=== PATIENT | female | born 1955 | race Caucasian/White ===

== ENCOUNTER 2022-09-09 09:22 | Emergency (ER) | payer MEDICARE ==
[2022-09-09] MEDS ORDERED: Sodium Chloride 0.9% 10 ML Syringe FLUSH PRN (09:51)
[2022-09-09] MEDS ORDERED: Ondansetron 4 MG/2 ML SDV IVPUSH ONE (09:51)
[2022-09-09] MEDS ORDERED: Sodium Chloride 0.9% 1,000 ML IV SCH (10:00)
[2022-09-09] MEDS ORDERED: HYDROmorphone 0.5 MG/0.5 ML Syringe IVPUSH ONE (10:30)
[2022-09-09] MEDS ORDERED: Sodium Bicarbonate 8.4% 50 MEQ/50 ML Syringe IVPUSH ONE ×2 (10:46→12:34)
[2022-09-09] MEDS ORDERED: Albuterol 0.083% 2.5 MG/3 ML Neb Soln NEB ONE (10:47)
[2022-09-09] MEDS ORDERED: Calcium Gluconate 10% 1 GM/10 ML SDV IVPUSH ONE (10:47)
[2022-09-09] MEDS ORDERED: 50% Dextrose in Water 50 ML Syringe IVPUSH ONE (10:48)
[2022-09-09] MEDS ORDERED: Insulin Regular, Human 100 Units/ML 3 ML Vial SUBCUT ONE (10:48)
[2022-09-09] MEDS ORDERED: Sodium Chloride 0.9% 1,000 ML IV ONE (10:53)
[2022-09-09 11:21] LABS: CORONAVIRUS COVID-19 NAA NEGATIVE (NEGATIVE)
[2022-09-09] MEDS ORDERED: HYDROmorphone 1 MG/ML Syringe IVPUSH ONE ×2 (12:08→14:11)
[2022-09-09] MEDS ORDERED: Sodium Bicarbonate 150 MEQ in Dextrose 5% in Water 1,000 ML IV ONE ×2 (12:45)
[2022-09-09] MEDS ORDERED: Dextrose 5% in Water 1,000 ML ONE (13:36)
== END 2022-09-09 14:23 ==
LOC: JD.ED 09:22
DX: E86.0 Dehydration (principal); E87.5 Hyperkalemia; N17.9 Acute kidney failure, unspecified; I10 Essential (primary) hypertension; Z79.899 Other long term (current) drug therapy; Z20.822 Contact with and (suspected) exposure to COVID-19
CPT/HCPCS: 0241U; 36415; 74176; 80053; 83690; 83735; 84484; 85025; 86140; 93005; 94640; 96361; 96365; 96375; 96376; 99285; J0610; J1170; J1815; J2405; J3490; J7030; J7060

== ENCOUNTER 2022-09-26 09:44 | Day surgery (SDC) | payer MEDICARE ==
[~2022-09-26 09:44] MED LIST: Lactated Ringers 1,000 ML IV SCH; Lidocaine 1% 5 ML VIAL ONE; Lidocaine 1%/Sod Bicarbonate in NS 8.4% 1 ML Syringe IDERM PRN; Midazolam 1 MG/ML 2 ML SDV ONE; Propofol 200 MG/20 ML SDV ONE; Sodium Chloride 0.9% 10 ML Syringe FLUSH PRN; Sodium Chloride 0.9% 10 ML Syringe FLUSH SCH; fentaNYL 100 MCG/2 ML SDV ONE
[2022-09-26] MEDS ORDERED: Sodium Chloride 0.9% 50 ML SDV ONE (09:55)
[2022-09-26] MEDS ORDERED: Lidocaine 1% with EPINEPHrine 1:100,000 10 ML MDV ONE (09:55)
[2022-09-26] MEDS ORDERED: fentaNYL 100 MCG/2 ML SDV IVPUSH PRN (10:48)
[2022-09-26] MEDS ORDERED: Ondansetron 4 MG/2 ML SDV IVPUSH PRN (10:48)
[2022-09-26] MEDS ORDERED: HYDROmorphone 0.5 MG/0.5 ML Syringe IVPUSH PRN (10:48)
[2022-09-26] MEDS ORDERED: Ondansetron 4 MG/2 ML SDV ONE (11:58)
[2022-09-26] MEDS ORDERED: ceFAZolin 2 GM Vial ONE (11:58)
[2022-09-26] MEDS ORDERED: Phenylephrine HCl In 0.9% NaCl 1 MG/10 ML Vial ONE (12:04)
== END 2022-09-26 13:50 | disposition home or self-care (01) ==
LOC: JD.SDS 09:44
PROVIDERS: ATTEND Surgery
DX: Z45.2 Encounter for adjustment and management of vascular access device (principal); C20 Malignant neoplasm of rectum; I10 Essential (primary) hypertension; K21.9 Gastro-esophageal reflux disease without esophagitis; E87.5 Hyperkalemia; N17.9 Acute kidney failure, unspecified; D64.9 Anemia, unspecified; Z98.890 Other specified postprocedural states; Z79.899 Other long term (current) drug therapy
CPT/HCPCS: 36415; 36561; 71045; 76000; 80048; C1788; J0690; J1642; J2250; J2405; J2704; J3010; J7120

== ENCOUNTER 2023-04-02 13:16 | Inpatient (IN) | payer MEDICARE ==
[2023-04-02] MEDS ORDERED: Sodium Chloride 0.9% 10 ML Syringe FLUSH PRN (13:36)
[2023-04-02] MEDS ORDERED: Sodium Chloride 0.9% 1,000 ML IV STA (14:00)
[2023-04-02] MEDS ORDERED: Acetaminophen 325 MG Tab PO ONE (14:00)
[2023-04-02 14:20] LABS: HEMATOCRIT 28.3 % (34.1-44.9); MEAN CORPUSCULAR HEMOGLOBIN 28.3 pg (25.6-32.2); MEAN CORPUSCULAR HGB CONC 31.8 g/dl (32.2-35.5); MEAN PLATELET VOLUME 9.9 fl (9.4-12.3); PLATELET COUNT,PLT 79 K/mm3 (182-369); RED BLOOD CELL COUNT 3.18 M/mm3 (3.98-5.22)
[2023-04-02 14:31] LABS: APPEARANCE,URINE CLEAR (Clear); BILIRUBIN,URINE NEGATIVE (Negative); COLOR,URINE YELLOW (Yellow); GLUCOSE,URINE NEGATIVE (Negative); KETONES,URINE NEGATIVE (Negative); LEUKOCYTE ESTERASE,URINE 1+ (Negative); NITRITE,URINE POSITIVE (Negative); OCCULT BLOOD,URINE NEGATIVE (Negative); PH,URINE 6.5 (5.0-8.0); PROTEIN,URINE 1+ (Negative); UROBILINOGEN,URINE 0.2 (0.2-1.0)
[2023-04-02 14:36] LABS: WHITE BLOOD CELL COUNT,WBC 1.59 K/mm3 (3.98-10.04)
[2023-04-02] MEDS ORDERED: cefTRIAXone 1 GM in Sodium Chloride 0.9% 100 ML IV ONE (14:43)
[2023-04-02 14:47] LABS: A/G RATIO 0.7 (1-2); ALBUMIN 3.1 g/dl (3.4-5.0); ANION GAP 13.9 (5-15); BILIRUBIN TOTAL 0.3 mg/dL (0.2-1.0); BUN/CREATININE RATIO 13.3 (14-18); C-REACTIVE PROTEIN 5.8 mg/dL (<1.0); CALCIUM 8.2 mg/dL (8.5-10.1); CREATININE 0.9 mg/dL (0.55-1.02); EST CRCL DRUG DOSING (CG) 48.11 mL/min; PROTEIN TOTAL,TP 7.4 g/dl (6.4-8.2)
[2023-04-02 14:51] LABS: POTASSIUM,K 3.9 mEq/L (3.5-5.1)
[2023-04-02 14:56] LABS: INR 1.02; PROTHROMBIN TIME 10.9 SECONDS (9.7-12.0)
[2023-04-02 15:00] LABS: BAND PERCENT MAN 0 % (0-10); BASOPHILS PERCENT MAN 1 (0.1-1.2); EOSINOPHILS PERCENT MAN 0 % (0.7-5.8); LYMPHOCYTES % ATYPICAL MANUAL 0 %; LYMPHOCYTES PERCENT MAN 26 % (20-40); METAMYELOCYTE PERCENT MAN 3; MONOCYTES PERCENT MAN 4 % (2-10)
[2023-04-02 15:04] LABS: ANISOCYTOSIS 1+ SLIGHT; HYPOCHROMASIA 1+ SLIGHT; MICROCYTOSIS 1+ SLIGHT; PLATELET COUNT ESTIMATE DECREASED; POIKILOCYTOSIS 2+ MODERATE
[2023-04-02 15:14] LABS: BACTERIA,URINE MANY /hpf (FEW); MUCUS,URINE FEW /hpf (FEW); RBC,URINE 0-5 /hpf (0-5); SQUAMOUS EPITHELIAL CELLS,UR 0-5 /hpf (0-5); WBC CLUMPS,URINE MODERATE /hpf (NOT SEEN); WBC,URINE >100 /hpf (0-5)
[2023-04-02] MEDS ORDERED: Meropenem 1 GM in Sodium Chloride 0.9% 100 ML IV SCH (16:00)
[2023-04-02] MEDS ORDERED: Morphine 2 MG/ML SYRINGE IVPUSH PRN (16:18)
[2023-04-02] MEDS ORDERED: Ondansetron 4 MG Tab.DIS PO PRN (16:18)
[2023-04-02] MEDS ORDERED: Cyclobenzaprine 10 MG Tab PO PRN (16:28)
[2023-04-02] MEDS ORDERED: traZODone 50 MG Tab PO PRN (16:28)
[2023-04-02] MEDS ORDERED: LORazepam 1 MG Tab PO PRN (16:28)
[2023-04-02] MEDS ORDERED: Dexamethasone 4 MG Tab PO SCH (16:30)
[2023-04-02 16:53] LABS: CORONAVIRUS COVID-19 NAA NEGATIVE (NEGATIVE); INFLUENZA A NAA NEGATIVE (NEGATIVE); RESPIRATORY SYNCYTIAL VIR NAA NEGATIVE (NEGATIVE)
[2023-04-02] MEDS: oxyCODONE 5 MG Tab PO PRN ×2 (17:54→21:59)
[2023-04-02] MEDS: Meropenem 500 MG in Sodium Chloride 0.9% 100 ML IV SCH (17:55)
[2023-04-02] MEDS ORDERED: Lidocaine 2% Viscous Solution 15 ML UD PO PRN (17:58)
[2023-04-02] MEDS: Famotidine 10 MG Tab PO SCH (20:59)
[2023-04-02] MEDS: Metoprolol Tartrate 100 MG Tab PO SCH (21:00)
[2023-04-02] MEDS: Sodium Bicarbonate 650 MG Tab PO SCH (21:00)
[2023-04-02] MEDS: Gabapentin 300 MG Cap PO SCH (21:00)
[2023-04-02] MEDS: Sodium Chloride 0.9% 1,000 ML IV SCH (21:36)
[2023-04-03] MEDS: Meropenem 500 MG in Sodium Chloride 0.9% 100 ML IV SCH ×3 (00:55→16:37)
[2023-04-03] MEDS: oxyCODONE 5 MG Tab PO PRN ×3 (02:21→16:49)
[2023-04-03 06:32] LABS: BASOPHILS ABSOLUTE AUTO 0.01 K/mm3 (0.01-0.08); BASOPHILS PERCENT AUTO 0.5 % (0.1-1.2); EOSINOPHILS ABSOLUTE AUTO 0.03 K/mm3 (0.04-0.36); EOSINOPHILS PERCENT AUTO 1.5 (0.7-5.8); HEMATOCRIT 24.8 % (34.1-44.9); HEMOGLOBIN 7.7 gm/dl (11.2-15.7); IMMATURE GRAN ABSOLUTE AUTO 0.01 K/mm3 (0.00-0.10); IMMATURE GRAN PERCENT AUTO 0.5 % (<=1.0); LYMPHOCYTES PERCENT AUTO 49.5 % (19.3-51.7); MEAN CORPUSCULAR VOLUME 90.2 fl (79.4-94.8); MEAN PLATELET VOLUME 8.5 fl (9.4-12.3); MONOCYTES ABSOLUTE AUTO 0.16 K/mm3 (0.24-0.36); MONOCYTES PERCENT AUTO 7.9 % (4.7-12.5); NEUTROPHILS ABSOLUTE AUTO 0.81 K/mm3 (1.56-6.13); NEUTROPHILS PERCENT AUTO 40.1 % (34.0-71.1); PLATELET COUNT,PLT 62 K/mm3 (182-369); RED BLOOD CELL COUNT 2.75 M/mm3 (3.98-5.22)
[2023-04-03 07:17] LABS: A/G RATIO 0.7 (1-2); ALBUMIN 2.4 g/dl (3.4-5.0); ANION GAP 10.5 (5-15); BILIRUBIN TOTAL 0.2 mg/dL (0.2-1.0); BUN/CREATININE RATIO 13.8 (14-18); CALCIUM 7.7 mg/dL (8.5-10.1); CREATININE 0.8 mg/dL (0.55-1.02); EST CRCL DRUG DOSING (CG) 54.13 mL/min; POTASSIUM,K 3.5 mEq/L (3.5-5.1); PROTEIN TOTAL,TP 5.8 g/dl (6.4-8.2)
[2023-04-03 07:50] LABS: WHITE BLOOD CELL COUNT,WBC 2.02 K/mm3 (3.98-10.04)
[2023-04-03 08:16] LABS: SLIDE REVIEW ABNORMAL SMEAR
[2023-04-03] MEDS: Famotidine 10 MG Tab PO SCH ×2 (08:58→21:32)
[2023-04-03] MEDS: Metoprolol Tartrate 100 MG Tab PO SCH ×2 (08:58→21:32)
[2023-04-03] MEDS: Gabapentin 300 MG Cap PO SCH ×3 (09:00→21:32)
[2023-04-03] MEDS: Sodium Bicarbonate 650 MG Tab PO SCH ×2 (09:00→21:32)
[2023-04-03] MEDS: Sodium Chloride 0.9% 1,000 ML IV SCH (11:36)
[2023-04-03] MEDS ORDERED: Codeine/Promethazine 10-6.25 MG/5 ML Syrup 5 ML UD Cup PO PRN (15:43)
[2023-04-04] MEDS: Sodium Chloride 0.9% 1,000 ML IV SCH (01:15)
[2023-04-04] MEDS: Meropenem 500 MG in Sodium Chloride 0.9% 100 ML IV SCH ×2 (01:17→09:55)
[2023-04-04 06:33] LABS: BASOPHILS ABSOLUTE AUTO 0.02 K/mm3 (0.01-0.08); BASOPHILS PERCENT AUTO 0.7 % (0.1-1.2); EOSINOPHILS ABSOLUTE AUTO 0.13 K/mm3 (0.04-0.36); EOSINOPHILS PERCENT AUTO 4.6 (0.7-5.8); HEMATOCRIT 25.6 % (34.1-44.9); HEMOGLOBIN 8.2 gm/dl (11.2-15.7); LYMPHOCYTES ABSOLUTE AUTO 1.56 K/mm3 (1.18-3.74); LYMPHOCYTES PERCENT AUTO 55.5 % (19.3-51.7); MEAN CORPUSCULAR HEMOGLOBIN 28.8 pg (25.6-32.2); MEAN CORPUSCULAR VOLUME 89.8 fl (79.4-94.8); MEAN PLATELET VOLUME 9.1 fl (9.4-12.3); MONOCYTES ABSOLUTE AUTO 0.27 K/mm3 (0.24-0.36); MONOCYTES PERCENT AUTO 9.6 % (4.7-12.5); NEUTROPHILS ABSOLUTE AUTO 0.83 K/mm3 (1.56-6.13); NEUTROPHILS PERCENT AUTO 29.6 % (34.0-71.1); PLATELET COUNT,PLT 57 K/mm3 (182-369); RED BLOOD CELL COUNT 2.85 M/mm3 (3.98-5.22); WHITE BLOOD CELL COUNT,WBC 2.81 K/mm3 (3.98-10.04)
[2023-04-04 06:52] LABS: A/G RATIO 0.7 (1-2); ALBUMIN 2.4 g/dl (3.4-5.0); ANION GAP 12.6 (5-15); BILIRUBIN TOTAL 0.2 mg/dL (0.2-1.0); BUN/CREATININE RATIO 12.9 (14-18); CALCIUM 7.9 mg/dL (8.5-10.1); CREATININE 0.7 mg/dL (0.55-1.02); EST CRCL DRUG DOSING (CG) 61.86 mL/min; POTASSIUM,K 3.6 mEq/L (3.5-5.1)
[2023-04-04 09:14] LABS: SLIDE REVIEW ABNORMAL SMEAR
[2023-04-04] MEDS: Famotidine 10 MG Tab PO SCH (09:54)
[2023-04-04] MEDS: Sodium Bicarbonate 650 MG Tab PO SCH (09:54)
[2023-04-04] MEDS: Metoprolol Tartrate 100 MG Tab PO SCH (09:54)
[2023-04-04] MEDS: oxyCODONE 5 MG Tab PO PRN (09:55)
[2023-04-04] MEDS: Gabapentin 300 MG Cap PO SCH (09:55)
== END 2023-04-04 12:45 | disposition home or self-care (01) | DRG 689 ==
LOC: JD.ED 13:16 → JD.MS 16:18
PROVIDERS: ADMIT Internal Medicine; ATTEND Internal Medicine
DX: N39.0 Urinary tract infection, site not specified (principal); D61.810 Antineoplastic chemotherapy induced pancytopenia; Z20.822 Contact with and (suspected) exposure to COVID-19; C18.6 Malignant neoplasm of descending colon; D84.9 Immunodeficiency, unspecified; T45.515A Adverse effect of anticoagulants, initial encounter; B96.20 Unspecified Escherichia coli [E. coli] as the cause of diseases classified elsewhere; I10 Essential (primary) hypertension; Z79.899 Other long term (current) drug therapy; Z93.3 Colostomy status; Z98.890 Other specified postprocedural states; Z98.51 Tubal ligation status
CPT/HCPCS: 0241U; 36415; 71046; 80053; 81001; 83605; 85007; 85025; 85027; 85610; 86140; 87040; 87077; 87086; 87088; 87154; 87186; 96523; 97112; 97161; 96361; 96365; 99223; 99232; 99239; 99285; 99285-25; A9270-GY; J0696; J1642; J2185; J3490; J7030

== ENCOUNTER 2023-12-15 19:46 | Emergency (ER) | payer MEDICARE, OTHER ==
[2023-12-15 20:28] LABS: BASOPHILS PERCENT AUTO 0.4 % (0.0-1.0); EOSINOPHILS ABSOLUTE AUTO 0.2 K/mm3 (0.0-0.4); EOSINOPHILS PERCENT AUTO 2.6 % (0.0-6.0); IMMATURE GRAN ABSOLUTE AUTO 0.03 K/mm3 (0.00-0.05); IMMATURE GRAN PERCENT AUTO 0.3 % (0.0-0.4); LYMPHOCYTES ABSOLUTE AUTO 2.5 K/mm3 (1.0-4.8); MEAN CORPUSCULAR HEMOGLOBIN 26.3 pg (28.0-32.0); MEAN CORPUSCULAR HGB CONC 32.4 g/dl (32.0-36.0); MONOCYTES ABSOLUTE AUTO 0.7 K/mm3 (0.0-0.8); MONOCYTES PERCENT AUTO 7.3 % (0.0-8.0); NEUTROPHILS ABSOLUTE AUTO 5.5 K/mm3 (1.8-7.7); NEUTROPHILS PERCENT AUTO 61.4 % (41.0-71.0); PLATELET COUNT,PLT 206 K/mm3 (150-400); RED BLOOD CELL COUNT 4.57 M/mm3 (4.10-5.30); WHITE BLOOD CELL COUNT,WBC 8.95 K/mm3 (3.9-11.3)
[2023-12-15 20:33] LABS: APPEARANCE,URINE CLEAR (Clear); BILIRUBIN,URINE NEGATIVE (Negative); COLOR,URINE LIGHT YELLOW (Yellow); GLUCOSE,URINE NEGATIVE (Negative); KETONES,URINE NEGATIVE (Negative); LEUKOCYTE ESTERASE,URINE 1+ (Negative); NITRITE,URINE NEGATIVE (Negative); OCCULT BLOOD,URINE NEGATIVE (Negative); PH,URINE 7.5 (5.0-8.0); PROTEIN,URINE NEGATIVE (Negative); UROBILINOGEN,URINE 0.2 (0.2-1.0)
[2023-12-15] MEDS: Sodium Chloride 0.9% 10 ML Syringe FLUSH PRN (20:35)
[2023-12-15] MEDS: Ondansetron 4 MG/2 ML SDV IVPUSH ONE (20:40)
[2023-12-15] MEDS: Sodium Chloride 0.9% 1,000 ML IV SCH (20:41)
[2023-12-15 20:53] LABS: RBC,URINE 0-5 /hpf (0-5); SQUAMOUS EPITHELIAL CELLS,UR 0-5 /hpf (0-5)
[2023-12-15 20:54] LABS: BACTERIA,URINE FEW /hpf (FEW); MUCUS,URINE NOT SEEN /hpf (FEW); RENAL EPITHELIAL CELLS,URINE 0-5 /hpf (0-5)
[2023-12-15 20:56] LABS: ALANINE AMINOTRANSFERASE,ALT 14 U/L (14-59); ALBUMIN 3.8 g/dl (3.4-5.0); ALKALINE PHOSPHATASE 102 U/L (46-116); ANION GAP 17.7 (5-15); ASPARTATE AMNIOTRANSFERASE,AST 17 U/L (15-37); BILIRUBIN TOTAL 0.5 mg/dL (0.2-1.0); BLOOD UREA NITROGEN,BUN 9 mg/dL (7-18); C-REACTIVE PROTEIN < 0.2 mg/dL (<1.0); CALCIUM 8.9 mg/dL (8.5-10.1); CARBON DIOXIDE,CO2 25 mEq/L (21-32); CHLORIDE,CL 102 mEq/L (98-107); ESTIMATED GFR 61 mL/min (>60); GLUCOSE RANDOM 140 mg/dL (70-99); LIPASE 23 U/L (16-77); MAGNESIUM 1.9 mg/dL (1.8-2.4); POTASSIUM,K 3.7 mEq/L (3.5-5.1); PROTEIN TOTAL,TP 7.6 g/dl (6.4-8.2); SODIUM,NA 141 mEq/L (136-145)
[2023-12-15] MEDS: Alum Hydrox/Mag Hydrox/Simeth 30 ML, Lidocaine 2% 15 ML PO ONE (21:09)
[2023-12-15 21:24] LABS: CORONAVIRUS COVID-19 NAA NEGATIVE (NEGATIVE); INFLUENZA A NAA NEGATIVE (NEGATIVE); RESPIRATORY SYNCYTIAL VIR NAA NEGATIVE (NEGATIVE)
== END 2023-12-15 21:52 | disposition home or self-care (01) ==
LOC: JD.ED 19:46
DX: R10.13 Epigastric pain (principal); R11.0 Nausea; I10 Essential (primary) hypertension; Z79.899 Other long term (current) drug therapy
CPT/HCPCS: 0241U; 36415; 80053; 81001; 83690; 83735; 84484; 85025; 86140; 93005; 96361; 96374; 99284-25; A9270-GY; J2405; J3490; J7030

== ENCOUNTER 2024-02-17 13:41 | Emergency (ER) | payer MEDICARE ==
[2024-02-17] MEDS: Sodium Chloride 0.9% 1,000 ML IV ONE (15:04)
[2024-02-17 15:10] LABS: BASOPHILS ABSOLUTE AUTO 0.1 K/mm3 (0.0-0.2); BASOPHILS PERCENT AUTO 0.6 % (0.0-1.0); EOSINOPHILS ABSOLUTE AUTO 0.2 K/mm3 (0.0-0.4); HEMATOCRIT 30.4 % (37.0-47.0); IMMATURE GRAN ABSOLUTE AUTO 0.03 K/mm3 (0.00-0.05); IMMATURE GRAN PERCENT AUTO 0.3 % (0.0-0.4); MEAN CORPUSCULAR HGB CONC 32.2 g/dl (32.0-36.0); MEAN CORPUSCULAR VOLUME 80.6 fl (83.0-99.0); MEAN PLATELET VOLUME 8.6 fl (9.4-12.3); MONOCYTES ABSOLUTE AUTO 0.7 K/mm3 (0.0-0.8); MONOCYTES PERCENT AUTO 8.1 % (0.0-8.0); NEUTROPHILS ABSOLUTE AUTO 4.8 K/mm3 (1.8-7.7); PLATELET COUNT,PLT 176 K/mm3 (150-400); RED BLOOD CELL COUNT 3.77 M/mm3 (4.10-5.30); WHITE BLOOD CELL COUNT,WBC 8.67 K/mm3 (3.9-11.3)
[2024-02-17 15:18] LABS: HEMOGLOBIN 9.8 gm/dl (12.0-16.0)
[2024-02-17 15:42] LABS: LACTIC ACID 0.7 mmol/L (0.4-2.0)
[2024-02-17] MEDS: Sodium Chloride 0.9% 10 ML Syringe FLUSH PRN (15:44)
[2024-02-17 15:49] LABS: ALANINE AMINOTRANSFERASE,ALT 13 U/L (14-59); ALBUMIN 3.2 g/dl (3.4-5.0); ALKALINE PHOSPHATASE 88 U/L (46-116); ANION GAP 12.5 (5-15); ASPARTATE AMNIOTRANSFERASE,AST 11 U/L (15-37); BILIRUBIN TOTAL 0.2 mg/dL (0.2-1.0); BLOOD UREA NITROGEN,BUN 15 mg/dL (7-18); BUN/CREATININE RATIO 16.7 (14-18); CALCIUM 8.1 mg/dL (8.5-10.1); CARBON DIOXIDE,CO2 28 mEq/L (21-32); CHLORIDE,CL 103 mEq/L (98-107); CREATININE 0.9 mg/dL (0.55-1.02); ESTIMATED GFR 68 mL/min (>60); GLUCOSE RANDOM 93 mg/dL (70-99); MAGNESIUM 1.9 mg/dL (1.8-2.4); POTASSIUM,K 3.5 mEq/L (3.5-5.1); PROTEIN TOTAL,TP 6.5 g/dl (6.4-8.2); SODIUM,NA 140 mEq/L (136-145)
[2024-02-17] MEDS ORDERED: Sodium Chloride 0.9% 10 ML Syringe FLUSH PRN (15:57)
[2024-02-17 15:59] LABS: APPEARANCE,URINE CLEAR (Clear); BILIRUBIN,URINE NEGATIVE (Negative); COLOR,URINE LIGHT YELLOW (Yellow); GLUCOSE,URINE NEGATIVE (Negative); KETONES,URINE NEGATIVE (Negative); LEUKOCYTE ESTERASE,URINE 1+ (Negative); NITRITE,URINE NEGATIVE (Negative); OCCULT BLOOD,URINE NEGATIVE (Negative); PROTEIN,URINE NEGATIVE (Negative); UROBILINOGEN,URINE 0.2 (0.2-1.0)
[2024-02-17] MEDS ORDERED: Sodium Chloride 0.9% 100 ML IV SCH (16:00)
[2024-02-17 16:06] LABS: BACTERIA,URINE FEW /hpf (FEW); EPITHELIAL CELLS,URINE 0-5 /hpf (0-5); MUCUS,URINE FEW /hpf (FEW); RBC,URINE 0-5 /hpf (0-5)
[2024-02-17] MEDS: Iopamidol 755 Mg/ML 100 ML Bottle IVPUSH ONE (17:41)
[2024-02-17] MEDS: cefTRIAXone 1 GM in Sodium Chloride 0.9% 100 ML IV ONE (18:44)
== END 2024-02-17 19:25 | disposition home or self-care (01) ==
LOC: EDUNIT# → EDBD → JD.ED 13:41
DX: N39.0 Urinary tract infection, site not specified (principal); Z79.899 Other long term (current) drug therapy
CPT/HCPCS: 36415; 70450; 70496; 70498; 80053; 81001; 81003; 83605; 83735; 85025; 87086; 96361; 96365; 99285; J0696; J1642; J3490; J7030; Q9967

== ENCOUNTER 2024-08-22 20:36 | Inpatient (IN) | payer MEDICAID, MEDICARE, OTHER ==
[2024-08-22 21:02] LABS: BASOPHILS PERCENT AUTO 0.7 % (0.0-1.0); EOSINOPHILS ABSOLUTE AUTO 0.4 K/mm3 (0.0-0.4); HEMATOCRIT 33.4 % (37.0-47.0); HEMOGLOBIN 10.8 gm/dl (12.0-16.0); IMMATURE GRAN ABSOLUTE AUTO 0.01 K/mm3 (0.00-0.05); IMMATURE GRAN PERCENT AUTO 0.2 % (0.0-0.4); LYMPHOCYTES ABSOLUTE AUTO 1.8 K/mm3 (1.0-4.8); LYMPHOCYTES PERCENT AUTO 30.8 % (24.0-44.0); MEAN CORPUSCULAR HGB CONC 32.3 g/dl (32.0-36.0); MEAN CORPUSCULAR VOLUME 80.3 fl (83.0-99.0); MONOCYTES ABSOLUTE AUTO 0.6 K/mm3 (0.0-0.8); MONOCYTES PERCENT AUTO 9.7 % (0.0-8.0); NEUTROPHILS ABSOLUTE AUTO 3.2 K/mm3 (1.8-7.7); NEUTROPHILS PERCENT AUTO 52.6 % (41.0-71.0); PLATELET COUNT,PLT 179 K/mm3 (150-400); RED BLOOD CELL COUNT 4.16 M/mm3 (4.10-5.30); WHITE BLOOD CELL COUNT,WBC 5.98 K/mm3 (3.9-11.3)
[2024-08-22 21:06] LABS: APPEARANCE,URINE CLEAR (Clear); BILIRUBIN,URINE NEGATIVE (Negative); COLOR,URINE YELLOW (Yellow); GLUCOSE,URINE NEGATIVE (Negative); KETONES,URINE NEGATIVE (Negative); LEUKOCYTE ESTERASE,URINE NEGATIVE (Negative); NITRITE,URINE NEGATIVE (Negative); OCCULT BLOOD,URINE NEGATIVE (Negative); PROTEIN,URINE NEGATIVE (Negative)
[2024-08-22 21:15] LABS: BARBITURATE SCREEN,URINE NEGATIVE (CUTOFF=200); BENZODIAZEPINES SCREEN,URINE PRESUMPTIVE POSITIVE (CUTOFF=150); BUPRENORPHINE SCREEN,URINE NEGATIVE (CUTOFF=10); METHADONE SCREEN, URINE NEGATIVE (CUTOFF=200); METHAMPHETAMINES SCREEN, URINE NEGATIVE (CUTOFF=500); OXYCODONE SCREEN,URINE PRESUMPTIVE POSITIVE (CUT0FF=100); THC SCREEN,URINE 20 NG/ML NEGATIVE (CUTOFF=50)
[2024-08-22 21:20] LABS: BACTERIA,URINE RARE /hpf (FEW); HYALINE CASTS,URINE 0-5 /lpf (0-5); MUCUS,URINE FEW /hpf (FEW); RBC,URINE 0-5 /hpf (0-5); SQUAMOUS EPITHELIAL CELLS,UR NOT SEEN /hpf (0-5); WBC,URINE 0-5 /hpf (0-5)
[2024-08-22] MEDS: Naloxone 0.4 MG/ML SDV IVPUSH ONE (21:26)
[2024-08-22 21:27] LABS: AMPHETAMINES SCREEN, URINE NEGATIVE (CUTOFF=500)
[2024-08-22 21:33] LABS: A/G RATIO 0.9 (1-2); ALBUMIN 3.1 g/dl (3.4-5.0); ANION GAP 10.7 (5-15); BILIRUBIN TOTAL 0.4 mg/dL (0.2-1.0); CALCIUM 8.4 mg/dL (8.5-10.1); CREATININE 1.1 mg/dL (0.55-1.02); EST CRCL DRUG DOSING (CG) 40.51 mL/min; POTASSIUM,K 3.7 mEq/L (3.5-5.1); PROTEIN TOTAL,TP 6.7 g/dl (6.4-8.2); TSH 3.88 uIU/mL (0.358-3.74)
[2024-08-23] MEDS: Naloxone 0.4 MG/ML SDV IVPUSH ONE ×2 (00:22→04:44)
[2024-08-23] MEDS: Albuterol/Ipratropium 3.0-0.5 MG/3 ML Neb Soln NEB ONE (04:35)
[2024-08-23 05:44] LABS: CREATINE KINASE,CK 99 U/L (26-192)
[2024-08-23] MEDS: cefTRIAXone 1 GM in Sodium Chloride 0.9% 100 ML IV ONE (05:54)
[2024-08-23 05:59] LABS: ACETAMINOPHEN 0 ug/mL (10-30)
[2024-08-23] MEDS ORDERED: Ondansetron 4 MG/2 ML SDV IV PRN (09:04)
[2024-08-23] MEDS ORDERED: Polyethylene Glycol 3350 Powder 17 GM Packet PO PRN (09:04)
[2024-08-23] MEDS: Dextrose 5%-0.45% NaCl 1,000 ML IV SCH (17:57)
[2024-08-23] MEDS: Cefepime 2 GM in Sodium Chloride 0.9% 50 ML IV SCH (21:07)
[2024-08-23] MEDS: Doxycycline 100 MG in Sodium Chloride 0.9% 100 ML IV SCH (21:38)
[2024-08-24 05:25] LABS: BASOPHILS PERCENT AUTO 0.3 % (0.0-1.0); EOSINOPHILS ABSOLUTE AUTO 0.3 K/mm3 (0.0-0.4); EOSINOPHILS PERCENT AUTO 2.7 % (0.0-6.0); HEMATOCRIT 35.2 % (37.0-47.0); HEMOGLOBIN 11.5 gm/dl (12.0-16.0); IMMATURE GRAN ABSOLUTE AUTO 0.04 K/mm3 (0.00-0.05); IMMATURE GRAN PERCENT AUTO 0.3 % (0.0-0.4); LYMPHOCYTES ABSOLUTE AUTO 1.9 K/mm3 (1.0-4.8); MEAN CORPUSCULAR HGB CONC 32.7 g/dl (32.0-36.0); MEAN CORPUSCULAR VOLUME 79.6 fl (83.0-99.0); MEAN PLATELET VOLUME 10.4 fl (9.4-12.3); MONOCYTES ABSOLUTE AUTO 0.8 K/mm3 (0.0-0.8); MONOCYTES PERCENT AUTO 6.7 % (0.0-8.0); NEUTROPHILS ABSOLUTE AUTO 8.9 K/mm3 (1.8-7.7); PLATELET COUNT,PLT 145 K/mm3 (150-400); RED BLOOD CELL COUNT 4.42 M/mm3 (4.10-5.30); WHITE BLOOD CELL COUNT,WBC 12.01 K/mm3 (3.9-11.3)
[2024-08-24 05:45] LABS: A/G RATIO 0.8 (1-2); ANION GAP 11.5 (5-15); BILIRUBIN TOTAL 0.9 mg/dL (0.2-1.0); EST CRCL DRUG DOSING (CG) 42.68 mL/min; POTASSIUM,K 3.5 mEq/L (3.5-5.1); PROTEIN TOTAL,TP 6.9 g/dl (6.4-8.2)
[2024-08-24] MEDS: Enoxaparin 40 MG/0.4 ML Syringe SUBCUT SCH (09:00)
[2024-08-24 09:59] LABS: MAGNESIUM 1.9 mg/dL (1.8-2.4); PHOSPHORUS 3.2 mg/dL (2.6-4.7)
[2024-08-24] MEDS: Potassium Chloride 20 MEQ Tab.ER PO ONE (10:30)
[2024-08-24] MEDS: Cefepime 2 GM in Sodium Chloride 0.9% 50 ML IV SCH (10:30)
[2024-08-24] MEDS: Diclofenac Sodium 1% Gel 100 GM Tube TOP SCH (10:30)
[2024-08-24] MEDS: Gabapentin 300 MG Cap PO SCH (10:45)
[2024-08-24] MEDS ORDERED: Gabapentin 300 MG Cap PO SCH (15:00)
[2024-08-24] MEDS ORDERED: Ampicillin/Sulbactam Na 1.5 GM in Sodium Chloride 0.9% 100 ML IV SCH (16:00)
[2024-08-24] MEDS: Metoprolol Succinate 50 MG Tab.ER PO SCH (18:18)
[2024-08-24] MEDS: Ampicillin/Sulbactam Na 1.5 GM in Sodium Chloride 0.9% 100 ML IV SCH (18:20)
[2024-08-24] MEDS: Melatonin 3 MG Tab PO PRN (20:39)
[2024-08-24] MEDS: Acetaminophen 325 MG Tab PO PRN (22:05)
[2024-08-24 23:05] LABS: IRON,FE 16 ug/dL (50-170); PERCENT FE SATURATION 9 % (20-55); TOTAL IRON BINDING CAPACITY 179 ug/dL (100-400); TRANSFERRIN 143 mg/dL (202-364)
[2024-08-25 04:47] LABS: BASOPHILS PERCENT AUTO 0.4 % (0.0-1.0); EOSINOPHILS ABSOLUTE AUTO 0.6 K/mm3 (0.0-0.4); EOSINOPHILS PERCENT AUTO 6.1 % (0.0-6.0); HEMATOCRIT 33.7 % (37.0-47.0); HEMOGLOBIN 11.2 gm/dl (12.0-16.0); IMMATURE GRAN ABSOLUTE AUTO 0.04 K/mm3 (0.00-0.05); IMMATURE GRAN PERCENT AUTO 0.4 % (0.0-0.4); LYMPHOCYTES ABSOLUTE AUTO 1.9 K/mm3 (1.0-4.8); LYMPHOCYTES PERCENT AUTO 18.5 % (24.0-44.0); MEAN CORPUSCULAR HEMOGLOBIN 26.2 pg (28.0-32.0); MEAN CORPUSCULAR HGB CONC 33.2 g/dl (32.0-36.0); MEAN CORPUSCULAR VOLUME 78.9 fl (83.0-99.0); MEAN PLATELET VOLUME 9.8 fl (9.4-12.3); MONOCYTES ABSOLUTE AUTO 0.8 K/mm3 (0.0-0.8); MONOCYTES PERCENT AUTO 7.5 % (0.0-8.0); NEUTROPHILS ABSOLUTE AUTO 6.8 K/mm3 (1.8-7.7); NEUTROPHILS PERCENT AUTO 67.1 % (41.0-71.0); PLATELET COUNT,PLT 173 K/mm3 (150-400); RED BLOOD CELL COUNT 4.27 M/mm3 (4.10-5.30)
[2024-08-25 05:26] LABS: ANION GAP 15.7 (5-15); BUN/CREATININE RATIO 12.2 (14-18); C-REACTIVE PROTEIN 10.35 mg/dL (<0.30); CREATININE 0.9 mg/dL (0.55-1.02); EST CRCL DRUG DOSING (CG) 47.43 mL/min; MAGNESIUM 1.9 mg/dL (1.8-2.4); PHOSPHORUS 2.8 mg/dL (2.6-4.7); POTASSIUM,K 3.7 mEq/L (3.5-5.1)
[2024-08-25] MEDS: Potassium Chloride 20 MEQ Tab.ER PO ONE (08:22)
[2024-08-25] MEDS: Prazosin 1 MG Cap PO ONE (08:23)
[2024-08-25] MEDS: Sodium Ferric Gluconate Cmplex 125 MG in Sodium Chloride 0.9% 100 ML IV SCH (09:07)
[2024-08-25] MEDS: oxyCODONE 5 MG Tab PO ONE (10:41)
[2024-08-25] MEDS ORDERED: oxyCODONE 5 MG Tab PO PRN (11:46)
[2024-08-25] MEDS: Gabapentin 300 MG Cap PO SCH (14:00)
[2024-08-25] MEDS ORDERED: Prazosin 1 MG Cap PO SCH (21:00)
[2024-08-25] MEDS ORDERED: Gabapentin 600 MG Tab PO SCH (21:00)
== END 2024-08-25 15:31 | disposition home health service (06) | DRG 177 ==
LOC: JD.ED 20:36 → JD.ICU 08-23 09:04
PROVIDERS: ADMIT Family Medicine; ATTEND Student in an Organized Health Care Education/Training Program
DX: J69.0 Pneumonitis due to inhalation of food and vomit (principal); G92.8 Other toxic encephalopathy; J96.01 Acute respiratory failure with hypoxia; F03.93 Unspecified dementia, unspecified severity, with mood disturbance; Z66 Do not resuscitate; I10 Essential (primary) hypertension; K21.9 Gastro-esophageal reflux disease without esophagitis; G62.9 Polyneuropathy, unspecified; G89.29 Other chronic pain; T40.2X1A Poisoning by other opioids, accidental (unintentional), initial encounter; T42.4X1A Poisoning by benzodiazepines, accidental (unintentional), initial encounter; M19.90 Unspecified osteoarthritis, unspecified site; D50.9 Iron deficiency anemia, unspecified; Z98.51 Tubal ligation status; Z90.89 Acquired absence of other organs; Z98.890 Other specified postprocedural states; Z79.899 Other long term (current) drug therapy; Z85.038 Personal history of other malignant neoplasm of large intestine
CPT/HCPCS: 71045; 70450; 94640; 93005; 85025; 81001; 36415 ×2; 80053; 82550; 84443; 84439; 80143; 80179; 80306; C1758; J0696; J2310 ×3; J3490; 80048; 82728; 83540; 83735; 84100; 84466; 86140; 94760; 97110-GP; 97116-GP; 97161-GP; 97530-GP; A9270-GY; J0295; J0692; J1650; J2916; J3475; J7620-GY; J7799